=== PATIENT | female | born 1935 | race Caucasian/White ===

== ENCOUNTER 2016-10-29 03:50 | Emergency (ER) | payer MEDICARE, BC ==
[2016-10-29] MEDS ORDERED: NITROGLYCERIN 0.4 MG TAB SL PRN (03:52)
[2016-10-29] MEDS ORDERED: SODIUM CHLORIDE 0.9% FLUSH 10 ML SOL IV PRN (03:52)
[2016-10-29] MEDS ORDERED: LIDOCAINE HCL 2% (VISCOUS) 20 ML SOL ONE ×2 (04:03→04:18)
[2016-10-29] MEDS ORDERED: ALUMINUM/MAGNESIUM 30 ML SUS ONE ×2 (04:03→04:18)
[2016-10-29] MEDS ORDERED: KETOROLAC TROMETHAMINE 30 MG/ML SOL IV ONE (04:10)
[2016-10-29] MEDS ORDERED: ONDANSETRON 4 MG ODT ONE (04:11)
[2016-10-29] MEDS ORDERED: ONDANSETRON 4 MG ODT BU ONE (04:11)
[2016-10-29 04:13] LABS: BASOPHILS % (AUTO) 1 % (0-3); EOSINOPHILS % (AUTO) 2 % (0-9); HEMATOCRIT 34 % (35-47); MEAN CORPUSCULAR HGB CONC 36.4 gm/dl (32.0-36.0); MEAN CORPUSCULAR VOLUME 89 fL (81-99); MONOCYTES % (AUTO) 6.4 % (0-12); NEUTROPHILS % (AUTO) 76.8 % (37-80)
[2016-10-29] MEDS ORDERED: LIDOCAINE HCL 2% (VISCOUS) 20 ML SOL MT ONE (04:15)
[2016-10-29] MEDS ORDERED: ALUMINUM/MAGNESIUM 30 ML SUS PO PRN (04:15)
[2016-10-29] MEDS ORDERED: KETOROLAC TROMETHAMINE 30 MG/ML SOL ONE (04:18)
[2016-10-29 04:31] VITALS: TEMP 97.1
[2016-10-29 04:33] LABS: CALCIUM 8.5 mg/dl (8.5-10.1); GLOM FILT RATE 40 mL/min (>60); POTASSIUM 3.7 mMol/L (3.5-5.1); SODIUM 135 mMol/L (136-145)
[2016-10-29 05:06] VITALS: BP 129/64; PULSE 77; RESP 18; O2SAT 97
== END 2016-10-29 05:08 | disposition home or self-care (01) | DRG 313 ==
LOC: ED 03:50
DX: R07.89 Other chest pain (principal); I44.7 Left bundle-branch block, unspecified; R10.13 Epigastric pain; J06.9 Acute upper respiratory infection, unspecified
CPT/HCPCS: 71010; 80048; 82550; 84484; 85025; 93005; 96374; 99284; 99285; J1885